=== PATIENT | male | born 1945 | race Caucasian/White ===

== ENCOUNTER 2018-06-28 07:14 | Outpatient (CLI) | payer MEDICARE, BC, SELFPAY ==
[2018-06-28 08:26] LABS: ALT 32 U/L (12-78); AST 26 U/L (15-37); Alkaline Phosphatase 59 U/L (46-116); Anion Gap 8.3 mmol/L (3-11); BUN 17 mg/dL (7-18); Bilirubin, Total 0.9 mg/dL (0.2-1.0); CO2 28.7 mmol/L (21.0-32.0); CREATININE 0.98 mg/dL (0.70-1.30); Chloride 104 mmol/L (98-107); Cholesterol 153 mg/dL (50-200); Glucose 93 mg/dL (70-100); HDL Cholesterol 44 mg/dL (40-60); LDL CHOLESTEROL 105 mg/dL (<100); Potassium 4.3 mmol/L (3.5-5.1); Sodium 141 mmol/L (136-145); Total Protein 7.1 g/dL (6.4-8.2); Triglyceride 42 mg/dL (30-150)
== END 2018-06-28 07:34 ==
PROVIDERS: PCP Nurse Practitioner; Visit Provider Nurse Practitioner
DX: R03.0 Elevated blood-pressure reading, without diagnosis of hypertension (principal); E78.5 Hyperlipidemia, unspecified; N40.0 Benign prostatic hyperplasia without lower urinary tract symptoms
CPT/HCPCS: 36415; 80053; 80061; 83721

== ENCOUNTER 2019-07-17 07:16 | Outpatient (CLI) | payer MEDICARE, BC, SELFPAY ==
[2019-07-17 08:58] LABS: ALT 28 U/L (16-63); AST 25 U/L (15-37); Alkaline Phosphatase 71 U/L (46-116); Anion Gap 9.8 mmol/L (3-11); BUN 16 mg/dL (7-18); CO2 28.2 mmol/L (21.0-32.0); Calcium 9.3 mg/dL (8.5-10.1); Chloride 104 mmol/L (98-107); Cholesterol 162 mg/dL (<200); Glucose 94 mg/dL (74-106); Potassium 4.3 mmol/L (3.5-5.1); Sodium 142 mmol/L (136-145); Total Protein 7.6 g/dL (6.4-8.2); Triglyceride 33 mg/dL (<150)
[2019-07-17 09:12] LABS: Calculated LDL 111 mg/dL; HDL Cholesterol 45 mg/dL (40-60)
== END 2019-07-17 07:36 ==
PROVIDERS: PCP Nurse Practitioner; Visit Provider Nurse Practitioner
DX: E78.5 Hyperlipidemia, unspecified (principal); R03.0 Elevated blood-pressure reading, without diagnosis of hypertension
CPT/HCPCS: 36415; 80053; 80061

== ENCOUNTER 2019-09-04 11:46 | Outpatient (CLI) | payer MEDICARE, BC, SELFPAY ==
--- NOTE | 2019-09-04 11:35 | DI.RAD_ITS ---
EXAM: XR SHOULDER LT COMPLETE 2+V INDICATION: Pain. COMPARISON: No exams were available for comparison TECHNIQUE: 2D digital imaging was performed. FINDINGS: There are degenerative changes seen at the acromioclavicular joint. The glenohumeral joint is well m aintained. The bones are intact and normally mineralized. No acute fracture or dislocation is prese nt. The soft tissues are unremarkable. IMPRESSION: Degenerative changes of the left acromioclavicular joint.
== END 2019-09-04 12:06 ==
PROVIDERS: PCP Nurse Practitioner; Referring Provider Nurse Practitioner; Visit Provider Student in an Organized Health Care Education/Training Program
DX: M25.512 Pain in left shoulder (principal); M19.012 Primary osteoarthritis, left shoulder; M75.82 Other shoulder lesions, left shoulder; G56.02 Carpal tunnel syndrome, left upper limb
CPT/HCPCS: 99203; 99214; 73030

== ENCOUNTER → 2019-10-16 08:59 | Outpatient (BNVA) | payer MEDICARE, BC, SELFPAY | PROVIDERS: PCP Nurse Practitioner; Referring Provider Nurse Practitioner; Visit Provider Student in an Organized Health Care Education/Training Program | DX: M75.82 Other shoulder lesions, left shoulder; G56.02 Carpal tunnel syndrome, left upper limb | CPT/HCPCS: 99213 ==

== ENCOUNTER 2020-12-22 02:37 | Outpatient (CLI) | payer MEDICARE, BC, SELFPAY ==
[2020-12-22 07:21] LABS: HCT 45.3 % (40.0-50.0); HGB 15.3 g/dL (13.5-17.5); MCH 32.3 pg (27.0-33.0); MCHC 33.8 % (32.0-36.0); MCV 95.6 fL (80-95); MPV 8.5 fL (8.0-11.0); Platelet Count 216 10^3/uL (130-400); RBC 4.74 10^6/uL (4.36-5.78); RDW 11.9 % (11.8-14.1); RDW-SD 42.2 fL; WBC 5.93 10^3/uL (4.4-10.8)
[2020-12-22 08:08] LABS: ALT 37 U/L (16-63); AST 28 U/L (15-37); Alkaline Phosphatase 69 U/L (46-116); Anion Gap 6.9 mmol/L (3-11); BUN 17 mg/dL (7-18); Bilirubin, Total 0.8 mg/dL (0.2-1.0); CO2 31.1 mmol/L (21.0-32.0); CREATININE 0.9 mg/dL (0.70-1.30); Calcium 9.1 mg/dL (8.5-10.1); Calculated LDL 115 mg/dL (<100); Chloride 107 mmol/L (98-107); Cholesterol 172 mg/dL (<200); Glucose 94 mg/dL (74-106); HDL Cholesterol 48 mg/dL (40-60); Potassium 4.7 mmol/L (3.5-5.1); Sodium 145 mmol/L (136-145); Total Protein 7.8 g/dL (6.4-8.2); Triglyceride 48 mg/dL (<150)
[2020-12-22 17:29] LABS: PSA, Screening 0.8 ng/mL (0.0-6.5)
== END 2020-12-22 02:38 | disposition home or self-care (01) ==
LOC: LBO 02:37
PROVIDERS: PCP Nurse Practitioner; Visit Provider Nurse Practitioner
DX: E78.5 Hyperlipidemia, unspecified (principal); R03.0 Elevated blood-pressure reading, without diagnosis of hypertension; N40.0 Benign prostatic hyperplasia without lower urinary tract symptoms; Z12.5 Encounter for screening for malignant neoplasm of prostate
CPT/HCPCS: 36415; 80053; 80061; 84153; 85027

== ENCOUNTER 2021-01-01 00:48 | Outpatient (CLI) | payer MEDICARE, BC, SELFPAY ==
--- NOTE | 2021-01-01 07:15 | DI.US_ITS ---
Exam(s) US AAA SCREENING EXAM: US AAA SCREENING CLINICAL HISTORY: SCREENING FOR AAA,Z13.6 COMPARISON: No exams were available for comparison FINDINGS: There is very mild prominence of the diameter of the mid through abdominal aorta when compared to the upper abdominal aorta, exhibiting maximum diameter of only 2.6 cm but this is slightly more prominen t diameter than the proximal aorta which exhibits diameter 2.4 cm. The aorta tapers distally to diam eter of 2.1 cm above the bifurcation. There is an element of mild arterial megaly of both common anabel ac arteries. Visualized right common iliac artery exhibits diameter 1.6 cm and left common iliac art meena 1.4 cm. Mild moderate plaque noted in the aorta. IMPRESSION: Mild arteriomegaly as described above. Although the maximum diameter of the abdominal aorta is only 2.6 cm, this mid aortic measurement does exceed the 2.4 cm measurement of the proximal abdominal aort a. In addition, there is an element of arterial megaly in the common iliac arteries as described abo ve. Recommend follow-up ultrasound in 1 year, earlier if clinically indicated DATA REPOSITORY:
== END 2021-01-01 01:08 ==
PROVIDERS: PCP Nurse Practitioner; Visit Provider Nurse Practitioner
DX: Z13.6 Encounter for screening for cardiovascular disorders (principal); I77.811 Abdominal aortic ectasia
CPT/HCPCS: 76706

== ENCOUNTER → 2021-01-26 14:10 | Outpatient (BNVA) | payer MEDICARE, BC, SELFPAY | PROVIDERS: PCP Nurse Practitioner; Referring Provider Nurse Practitioner; Visit Provider Student in an Organized Health Care Education/Training Program | DX: M65.321 Trigger finger, right index finger (principal); M65.322 Trigger finger, left index finger; G56.31 Lesion of radial nerve, right upper limb | CPT/HCPCS: 99213 ==

== ENCOUNTER 2021-12-22 02:03 | Outpatient (CLI) | payer MEDICARE, SELFPAY ==
[2021-12-22 07:42] LABS: HCT 45.3 % (40.0-50.0); HGB 14.9 g/dL (13.5-17.5); MCH 31.8 pg (27.0-33.0); MCHC 32.9 % (32.0-36.0); MCV 97 fL (80-95); MPV 8.7 fL (8.0-11.0); Platelet Count 196 10^3/uL (130-400); RBC 4.68 10^6/uL (4.36-5.78); RDW 12.1 % (11.8-14.1); RDW-SD 43.2 fL; WBC 5.21 10^3/uL (4.4-10.8)
[2021-12-22 08:42] LABS: ALT 35 U/L (16-63); AST 26 U/L (15-37); Albumin 4.2 g/dL (3.4-5.0); Alkaline Phosphatase 66 U/L (46-116); BUN 14 mg/dL (7-18); Bilirubin, Total 0.9 mg/dL (0.2-1.0); Calcium 9.1 mg/dL (8.5-10.1); Calculated LDL 119 mg/dL (<100); Chloride 104 mmol/L (98-107); Cholesterol 177 mg/dL (<200); Glucose 94 mg/dL (74-106); HDL Cholesterol 51 mg/dL (40-60); Potassium 4.3 mmol/L (3.5-5.1); Sodium 140 mmol/L (136-145); Total Protein 7.7 g/dL (6.4-8.2); Triglyceride 37 mg/dL (<150)
[2021-12-22 17:56] LABS: PSA, Screening 1.3 ng/mL (<=6.5)
== END 2021-12-22 02:04 | disposition home or self-care (01) ==
LOC: LBO 02:03
PROVIDERS: PCP Nurse Practitioner; Visit Provider Nurse Practitioner
DX: E78.5 Hyperlipidemia, unspecified (principal); N40.0 Benign prostatic hyperplasia without lower urinary tract symptoms; R03.0 Elevated blood-pressure reading, without diagnosis of hypertension; Z12.5 Encounter for screening for malignant neoplasm of prostate
CPT/HCPCS: 36415; 80053; 80061; 84153; 85027

== ENCOUNTER → 2022-01-08 00:53 | Outpatient (CLI) | payer MEDICARE, SELFPAY ==
--- NOTE | 2022-01-08 06:45 | DI.US_ITS ---
Exam(s) US AAA DIAGNOSTIC EXAM: US AAA DIAGNOSTIC CLINICAL HISTORY: AA diameter prominence, 2.6 cm. 12 mos f/u., AORTIC ANOMALY, Q25.40 COMPARISON: US US AAA SCREENING from 01/01/2021 FINDINGS: Abdominal Aorta: Proximal: 2.5 x 2.5 cm Mid: 2.1 x 2.4 cm Distal: 1.9 x 1.9 cm Iliac's: Right: 1.5 x 1.3 cm Left: 1.4 x 1.5 cm [id number] atherosclerosis is present. IMPRESSION: No evidence of abdominal aortic aneurysm. DATA REPOSITORY:
== END ==
PROVIDERS: PCP Nurse Practitioner; Visit Provider Nurse Practitioner
DX: I70.0 Atherosclerosis of aorta (principal)
CPT/HCPCS: 76775

== ENCOUNTER 2022-11-25 12:30 | Outpatient (CLI) | payer MEDICARE, SELFPAY ==
--- NOTE | 2022-11-25 12:00 | DI.RAD_ITS ---
Exam(s) XR FOOT RT COMPLETE EXAM: XR FOOT RT COMPLETE CLINICAL HISTORY: Pain,swell,bruis ?stress fracture? M79.671 PAIN RT FOOT. TECHNIQUE: 2D digital imaging was performed. COMPARISON: No exams were available for comparison FINDINGS: 3 views No evidence of fracture or diastasis of the Lisfranc joint. No pes planus. Calcification noted post eriorly at the insertion of the Achilles tendon on the posterior calcaneus. Bone density normal. No osseous lesions. No erosions. IMPRESSION: As above. DATA REPOSITORY: RADIATION DOSE DELIVERED:
== END 2022-11-25 12:50 ==
LOC: DI 12:31
PROVIDERS: PCP Nurse Practitioner; Visit Provider Nurse Practitioner Family
DX: M79.671 Pain in right foot (principal); M76.61 Achilles tendinitis, right leg
CPT/HCPCS: 73630

== ENCOUNTER 2023-03-08 00:38 | Outpatient (CLI) | payer MEDICARE, SELFPAY ==
--- NOTE | 2023-03-08 07:30 | DI.RAD_ITS ---
Exam(s) XR CERVICAL SPINE COMP 4-5V EXAM: XR CERVICAL SPINE COMP 4-5V CLINICAL HISTORY: pain,neck discomfort, hand numbness,r20.0,m54.2. TECHNIQUE: 2D digital imaging was performed. Six images were obtained. AP, odontoid, lateral and shannon ateral oblique images were obtained. COMPARISON: No exams were available for comparison FINDINGS: The odontoid is intact. The lateral masses are well aligned. There is straightening of the normal ce rvical lordosis. This may be due to muscle spasm or patient positioning. There is disc space narrow ing at C5-6 and C6-7 in addition to endplate osteophytes. No acute fracture or subluxation is presen t. No significant neural foraminal stenosis is present. The cervical thoracic junction is well maint ained. Atherosclerosis is present. Lung apices are clear. 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 DATA REPOSITORY: RADIATION DOSE DELIVERED:
== END 2023-03-08 00:58 ==
LOC: DI 00:38
PROVIDERS: PCP Nurse Practitioner; Visit Provider Nurse Practitioner
DX: R20.0 Anesthesia of skin; M50.322 Other cervical disc degeneration at C5-C6 level; M50.323 Other cervical disc degeneration at C6-C7 level
CPT/HCPCS: 72050

== ENCOUNTER 2023-03-15 03:28 | Outpatient (CLI) | payer MEDICARE, SELFPAY ==
[2023-03-15 08:12] LABS: ALT 29 U/L (16-63); AST 31 U/L (15-37); Alkaline Phosphatase 61 U/L (46-116); Anion Gap 7.5 mmol/L (3-11); BUN 20 mg/dL (7-18); Bilirubin, Total 0.8 mg/dL (0.2-1.0); CO2 28.5 mmol/L (21.0-32.0); CREATININE 0.9 mg/dL (0.70-1.30); Calculated LDL 116 mg/dL (<100); Chloride 105 mmol/L (98-107); Cholesterol 173 mg/dL (<200); Estimated GFR 88.51 (mL/min/1.73m2); Glucose 93 mg/dL (74-106); HDL Cholesterol 49 mg/dL (40-60); Potassium 4.3 mmol/L (3.5-5.1); Sodium 141 mmol/L (136-145); Total Protein 7.8 g/dL (6.4-8.2); Triglyceride 42 mg/dL (<150)
[2023-03-15 20:00] LABS: PSA, Screening 2.1 ng/mL (<=6.5)
== END 2023-03-15 03:29 | disposition home or self-care (01) ==
LOC: LBO 03:28
PROVIDERS: PCP Nurse Practitioner; Referring Provider Nurse Practitioner; Visit Provider Nurse Practitioner
DX: E78.5 Hyperlipidemia, unspecified (principal); Z12.5 Encounter for screening for malignant neoplasm of prostate
CPT/HCPCS: 36415; 80053; 80061; 84153

== ENCOUNTER 2023-06-10 10:10 | Outpatient (REF) | payer MEDICARE, SELFPAY ==
[2023-06-10 15:33] LABS: Source Nasal/Nares
[2023-06-10 17:49] LABS: COVID-19 PCR Negative (Negative)
== END 2023-06-10 10:11 | disposition home or self-care (01) ==
LOC: LBN 10:10
PROVIDERS: Nurse Practitioner Adult Health; PCP Nurse Practitioner; Visit Provider Student in an Organized Health Care Education/Training Program
DX: Z11.52 Encounter for screening for COVID-19 (principal)
CPT/HCPCS: 87635

== ENCOUNTER 2024-03-23 02:29 | Outpatient (CLI) | payer MEDICARE, SELFPAY ==
[2024-03-23 09:53] LABS: ALT 54 U/L (16-63); AST 38 U/L (15-37); Albumin 4.1 g/dL (3.4-5.0); Alkaline Phosphatase 63 U/L (46-116); Anion Gap 5.9 mmol/L (3-11); BUN 21 mg/dL (7-18); Bilirubin, Total 0.98 mg/dL (0.2-1.0); CO2 31.1 mmol/L (21.0-32.0); CREATININE 1.1 mg/dL (0.70-1.30); Calcium 9.1 mg/dL (8.5-10.1); Calculated LDL 111 mg/dL (<100); Chloride 105 mmol/L (98-107); Cholesterol 170 mg/dL (<200); Estimated GFR 69.14 (mL/min/1.73m2); Glucose 103 mg/dL (74-106); HDL Cholesterol 50 mg/dL (40-60); Potassium 4.1 mmol/L (3.5-5.1); Sodium 142 mmol/L (136-145); Total Protein 7.8 g/dL (6.4-8.2); Triglyceride 48 mg/dL (<150)
[2024-03-23 18:26] LABS: PSA, Screening 3.5 ng/mL (<=6.5)
== END 2024-03-23 02:30 | disposition home or self-care (01) ==
LOC: LBO 02:29
PROVIDERS: Absent Provider Nurse Practitioner; PCP Nurse Practitioner; Referring Provider Nurse Practitioner; Visit Provider Nurse Practitioner
DX: Z12.5 Encounter for screening for malignant neoplasm of prostate (principal); Z13.220 Encounter for screening for lipoid disorders; N40.0 Benign prostatic hyperplasia without lower urinary tract symptoms; E78.5 Hyperlipidemia, unspecified
CPT/HCPCS: 36415; 80053; 80061; 84153

== ENCOUNTER 2025-04-19 01:10 | Outpatient (CLI) | payer MEDICARE, SELFPAY ==
[2025-04-19 07:50] LABS: Abs Immature Grans 0.02 10^3/uL (0.0-0.06); HCT 41.9 % (40.0-50.0); HGB 14.4 g/dL (13.5-17.5); Immature Grans % 0.4 %; MCH 32.1 pg (27.0-33.0); MCHC 34.4 % (32.0-36.0); MCV 93 fL (80-95); MPV 8.9 fL (8.0-11.0); Platelet Count 204 10^3/uL (130-400); RBC 4.49 10^6/uL (4.36-5.78); RDW 12.2 % (11.8-14.1); RDW-SD 42.5 fL; WBC 5.32 10^3/uL (4.4-10.8)
[2025-04-19 07:53] LABS: Glucose Negative (Negative)
[2025-04-19 08:02] LABS: Hemoglobin A1C 5.2 % (<5.7)
[2025-04-19 08:19] LABS: ALT 28 U/L (16-63); AST 24 U/L (15-37); Albumin 4.2 g/dL (3.4-5.0); Alkaline Phosphatase 60 U/L (46-116); Anion Gap 6.0 mmol/L (3-11); BUN 19 mg/dL (7-18); Bilirubin, Total 1.1 mg/dL (0.2-1.0); CO2 30.0 mmol/L (21.0-32.0); Calcium 9.1 mg/dL (8.5-10.1); Calculated LDL 130 mg/dL (<100); Chloride 105 mmol/L (98-107); Cholesterol 189 mg/dL (<200); Estimated GFR 87.42 (mL/min/1.73m2); Glucose 96 mg/dL (74-106); HDL Cholesterol 50 mg/dL (>or=40); Potassium 4.1 mmol/L (3.5-5.1); Sodium 141 mmol/L (136-145); TSH 2.58 uIU/mL (0.36-3.74); Total Protein 8.0 g/dL (6.4-8.2); Triglyceride 46 mg/dL (<150)
[2025-04-19 18:53] LABS: PSA, Screening 4.3 ng/mL (<=6.5)
== END 2025-04-19 01:11 | disposition home or self-care (01) ==
LOC: LBO 01:10
PROVIDERS: PCP Nurse Practitioner; Referring Provider Family Medicine; Visit Provider Family Medicine
DX: R74.01 Elevation of levels of liver transaminase levels (principal); E78.5 Hyperlipidemia, unspecified; Z13.9 Encounter for screening, unspecified; R53.83 Other fatigue; N40.0 Benign prostatic hyperplasia without lower urinary tract symptoms; D75.89 Other specified diseases of blood and blood-forming organs; Z13.1 Encounter for screening for diabetes mellitus
CPT/HCPCS: 36415; 80053; 80061; 84153; 81003; 83036; 84443; 85025